=== PATIENT | female | born 1955 | race Caucasian/White ===

== ENCOUNTER 2019-06-24 08:06 | Emergency (ER) | payer OTHER, BC ==
[~2019-06-24] VITALS: Ht 162.6 cm; Wt 111.1 kg
[2019-06-24 08:10] VITALS: Ht 162.6 cm; Wt 111.1 kg
[2019-06-24 08:55] VITALS: BP 135/75
== END 2019-06-24 08:55 | disposition home or self-care (01) ==
LOC: ED 08:06
DX: M25.561 Pain in right knee (principal); I10 Essential (primary) hypertension; E11.9 Type 2 diabetes mellitus without complications